=== PATIENT | female | born 1980 | race Caucasian/White ===

== ENCOUNTER → 2016-09-26 | Outpatient (CLI) | payer OTHER | LOC: BMCIMAGING 10:26 | PROVIDERS: ATTEND Family Medicine | DX: D25.0 Submucous leiomyoma of uterus (principal); N83.11 Corpus luteum cyst of right ovary ==

== ENCOUNTER 2017-03-19 17:37 | Observation (INO) | payer OTHER ==
--- NOTE | 2017-03-19 18:14 | OBPROG ---
Labor Progress Note Assessment/Plan: Assessment:fhr: 135 toco: no cramping noted dies leaking, bleeding, and cramping denies feeling regular movement as of yet Plan:consult dr. Stacey LAMA, hydration. Doppler. 03/19/17 18:11 Subjective/Intrapartum Course: 03/19/17 18:09 Feeling irregular cramping that has gone from a pain of 7 at 1600 to a pain of 4 now. i fell to my bottom at 1130. I have been told that I have broken my wrist and my elbow. Denies leaking, bleeding and regular cramping. - Physical Exam General Appearance: WD/WN, alert, no apparent distress Respiratory: chest non-tender, lungs clear, normal breath sounds Cardiac/Chest: regular rate, rhythm Abdomen: normal bowel sounds Extremities: normal range of motion, Veronica's sign (negative bilaterally) DTR- Lower Extremities: Knee (R): 1+, Knee (L): 1+ Skin: normal color, warm/dry Neuro/Psych: no motor/sensory deficits, alert, normal mood/affect, oriented x 3 ICD10 Worksheet Patient Problems: Problems Problem Status Onset fall at 20 weeks Acute
--- NOTE | 2017-03-19 18:33 | GHP ---
[f rep st] HISTORY AND PHYSICAL DATE OF ADMISSION: 03/19/2017 HISTORY OF PRESENT ILLNESS: The patient is a 37-year-old 1, para 0, with an EDC of 08/04/2017, which gives her a gestational age of 20 weeks, who comes into Labor and Delivery on 03/19/2016 with complaints of a fall at 11:30. The patient has been seen for a broken left wrist and left elbow fracture. Arm is in a sling, as well as has been bandaged. The patient states was feeling regular cramping at 04:15 to 5:00 at its worst. At that time, pain was a 7. Pain is better now at a 4. The patient is A negative. Denies bleeding or leaking. States feeling irregular flutters. No movement today. The patient has just [place] [facility] [place] [facility] [place]. PAST MEDICAL HISTORY: Patient has a history of IBS and depression. SOCIAL HISTORY: Has a significant other. Zero alcohol, 0 tobacco, 0 recreational medications. MEDICATIONS: Taking lithium at 150 mg, Latuda for bipolar. PAST SURGICAL HISTORY: Right femur surgeries x4. GYNECOLOGICAL HISTORY: Zero abnormal Paps. Previous OCP and IUD use. HISTORY: Denies. PHYSICAL EXAMINATION: GENERAL: Patient is awake, alert, oriented x3. LUNGS: Clear bilaterally. ABDOMEN: Bowel sounds are positive in all 4 quadrants. NEUROLOGIC: DTRs are 1+ bilaterally. Homans sign is negative bilaterally. MONITORING: heart rate was 135, no irritability or contractions noted on the monitor with toco use. The patient denies leaking and bleeding. The patient's blood type is A negative. PLAN: 1. Will do a Kleihauer Betke. 2. Doppler. 3. Continuous toco until KB results have been received. 4. Pelvic rest until next visit in the office. 5. Followup for broken wrist and broken elbow. 6. Discharge instructions and when to return. Will also give patient medication to assist with pain relief. 7. Consult Dr. Luther Morris on plan of care. No continuous monitoring. Connie Betshahnaz. Discharge to home with instructions. /[id number]/MODL I discussed this patient with Aye over the phone and agree with the plan of care as outlined above. No need for CEFM as previable - just limited tracing to ensure normal FHR. RhoGam if KB positive - can discuss dose based on result if positive. If negative and no s/sx of bleeding/ labor then OK for home w/ precautions. JOVANNI ABRAMSD
== END 2017-03-19 21:15 | disposition home or self-care (01) ==
LOC: FLD 17:37
PROVIDERS: ADMIT Advanced Practice Midwife; ATTEND Advanced Practice Midwife
DX: O9A.212 Injury, poisoning and certain other consequences of external causes complicating pregnancy, second trimester (principal); Z3A.20 20 weeks gestation of pregnancy; S52.102A Unspecified fracture of upper end of left radius, initial encounter for closed fracture; S52.602A Unspecified fracture of lower end of left ulna, initial encounter for closed fracture; W00.0XXA Fall on same level due to ice and snow, initial encounter; Y92.513 Shop (commercial) as the place of occurrence of the external cause
CPT/HCPCS: G0378 ×2

== ENCOUNTER → 2017-03-26 | Outpatient (CLI) | payer OTHER | LOC: FIMAGING 07:49 | PROVIDERS: ATTEND Advanced Practice Midwife | DX: O09.512 Supervision of elderly primigravida, second trimester (principal); F31.9 Bipolar disorder, unspecified; K90.0 Celiac disease; Z3A.21 21 weeks gestation of pregnancy ==

== ENCOUNTER → 2017-06-19 | Outpatient (CLI) | payer OTHER | LOC: FIMAGING 14:49 | PROVIDERS: ATTEND Obstetrics & Gynecology | DX: O09.523 Supervision of elderly multigravida, third trimester (principal); O36.63X0 Maternal care for excessive fetal growth, third trimester, not applicable or unspecified; O99.343 Other mental disorders complicating pregnancy, third trimester; F31.9 Bipolar disorder, unspecified; Z3A.33 33 weeks gestation of pregnancy ==

== ENCOUNTER 2017-07-01 17:57 | Emergency (ER) | payer OTHER ==
--- NOTE | 2017-07-01 17:15 | ASMTCMCOM ---
CM Note CM Note Notes: Requested to see patient by her RN in labor and delivery. Concern over patient having had 2 falls during . 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 The patient is making eye contact and is appropriately concerned for the welfare of her unborn child. Her is supportive at her side. This is their first . They are able to verbalize resources available to them to help when they baby is born. Her right hand is swollen and mildly painful. She reports she tripped over a step in the yard and fell into the raised garden bed. Further evaluation of her hand is pending. No current needs identified at this time. CM available should needs arise. Date Signed: 07/01/2017 05:14 PM Electronically Signed By:aNncy Narayanan RN
--- NOTE | 2017-07-01 17:18 | GHP ---
[f rep st] HISTORY AND PHYSICAL DATE OF ADMISSION: 07/01/2017 ADMITTING DIAGNOSES: 1. Intrauterine at 35 weeks and 1 day. 2. Status post fall with direct abdominal trauma. 3. Leakage of fluid. HISTORY OF PRESENT ILLNESS: The patient is a 37-year-old, 1, para 0, at 35 weeks and 1 day, with an estimated due date 08/04/2017. This is by LMP 10/28/2016 and consistent with a 6-week ultrasound. The patient presents status post fall about 2 hours ago. The patient states she tripped in her driveway on a stone pathway, and did have direct abdominal trauma. She landed on her knees, which are scraped up, as well as her right hand and wrist. She does have a swollen thumb as well as index finger. The patient states she is having some lower abdominal tenderness. Denies any contractions. Denies any spotting or vaginal bleeding. She does note leakage of fluid, but states it is mucus-like. The patient noted decreased movement after the fall, but now since she has been on labor and delivery on the monitor, and movement has picked up. The patient transferred care from [facility] to [facility] late in the first trimester. is complicated by advanced maternal age. All genetic screening is negative. She does have a history of depression and bipolar disorder with a suicide attempt in April 2014, and is currently on [place], Latuda, and Celexa. The patient also has a history of hypothyroidism and stable on meds. Growth ultrasound about 2 weeks ago showed an estimated weight of 96th percentile with no overt abnormalities. The patient is Rh negative, and received RhoGAM at 28 weeks. The patient does have a history of osteopenia and was seen in March of this with a broken left wrist and also has a history of a right femur fracture in 2010. PAST OBSTETRICAL HISTORY: None. GYNECOLOGICAL HISTORY: Age of menarche 11. Cycles are shortened since starting Latuda. She bleeds for 6-7 days. LMP is 10/28/2016. Denies a history of abnormal Pap smears. She has a history of ParaGard use for 3 years that did cause migraines, and then used OCPs for 1 year. Patient denies any exposure to sexually transmitted diseases. PAST MEDICAL HISTORY: Remarkable for bipolar disorder, depression, anxiety, migraine headaches, hypothyroidism, celiac disease, and osteopenia. PAST SURGICAL HISTORY: She had a femur repair x 4 and hardware removal in 2013. CURRENT MEDICATIONS: Include [place], Latuda, Celexa, vitamins, Synthroid 50 mcg, and iron. FAMILY HISTORY: Unremarkable. SOCIAL HISTORY: Patient is . She lives with her . 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 Denies any alcohol, tobacco, or illicit drug use. REVIEW OF SYSTEMS: 10-point review of systems negative. Pertinent positives noted in HPI. LABORATORIES: A-negative, antibody negative. RPR nonreactive. Rubella low immune. Hepatitis B surface antigen negative. HIV negative. Standard panel negative 01/2017. Pap test, gonorrhea, and chlamydia cultures all negative. Innatal screen negative 01/19. H and H 12.3 and 35.5. One-hour Glucola 107. PHYSICAL EXAMINATION: GENERAL: The patient is alert and oriented x3. Well- nourished, well-developed female. She is upset about the fall and any harm to baby. LUNGS: Clear to auscultation bilaterally. ABDOMEN: Gravid, soft. There is some mild tenderness bilaterally, lower abdomen. PELVIC: There is no active bleeding noted. Amnisure was collected. EXTREMITIES: Normal to inspection without calf tenderness or edema. On right hand, the right thumb is swollen, as well as index finger with some bruising. ASSESSMENT AND PLAN: The patient is a 37-year-old, 1, para 0, at 35 weeks and 1 day, who is status post fall with direct abdominal trauma and leakage of fluid. 1. Admit to labor and delivery for observation. 2. heart tones are category 1 tracing, reactive, with baseline in 130's, positive accelerations, no decelerations, moderate variability. On tocometry, there are no contractions noted, and minimal irritability. Will do continuous monitoring. 3. Kleihauer-Betke sent off. If positive, patient will receive RhoGAM. 4. Once we have Kleihauer-Betke results, patient is obstetrically stable and cleared, will discharge and send down to the emergency room for evaluation of right hand and wrist. 5. The patient given instructions to keep routine visit and growth ultrasound at 36 weeks. Instructed to rest, increase fluids, take Tylenol Extra Strength as needed for abdominal cramping, as well as heating pad. labor instructions given. /[id number]/MODL MTDD
--- NOTE | 2017-07-01 18:29 | EDPHY ---
H & P Time Seen by Provider: 07/01/17 18:08 HPI/ROS: CHIEF COMPLAINT: Right hand pain HISTORY OF PRESENT ILLNESS: Patient is a 37-year-old G1 para 0, 35 weeks and 1 day who presents to the emergency department after having a trip and fall. She was walking on her stone pathway when she tripped. She landed forward on her knees and struck her abdomen. She came to the hospital and was initially evaluated in L&D by Dr. Wilkins. In L&D she was evaluated with total lytic monitoring. Per Dr. Wilkins heart tones showed a category 1 tracing, reactive, with positive accelerations, no decelerations, and moderate variability. The patient had a Kleihauer-Betke test. Patient was sent to the emergency department for evaluation of her hand. Patient also has moderate discomfort of her right 4th and 5th metacarpal. This extends up to her 4th and 5th digits. No forearm tenderness. No radial head tenderness. No elbow, humerus or shoulder tenderness. The patient denies any other complaints at this time. REVIEW OF SYSTEMS: My complete review of systems is negative except as mentioned in the HPI. Past Medical/Surgical History: Includes bipolar disorder, depression, anxiety, migraine, hypothyroidism, celiac disease, osteopenia Past surgical history: Femur repair Social history: The patient is . She denies drugs or alcohol. Smoking Status: Never smoked Physical Exam: Vitals noted GENERAL: Well-appearing, in no acute distress, alert. HEENT: [Eyes normal to inspection, no trauma. NECK: Nexus negative. No tenderness palpation RESPIRATORY: Clear to auscultation bilaterally, no rales, rhonchi or wheezing. CVS: Regular rate and rhythm, no rubs, murmurs, or gallops. ABDOMEN: Gravid. Soft, nondistended. BACK: Normal to inspection, no CVA tenderness. SKIN: Normal color, no rash, warm, dry. No pallor. EXTREMITIES: No pedal edema, no calf tenderness, no Homans sign or cords, no joint swelling. The patient has mild swelling over her right 4th and 5th metacarpals. This extends into her right 4th and 5th digits. Neurovascular intact distally NEURO/PSYCH: Alert and oriented, normal mood and affect, normal motor sensory exam. Constitutional: Initial Vital Signs Temperature (C) 37.0 C 07/01/17 18:09 Heart Rate 90 07/01/17 18:09 Respiratory Rate 18 07/01/17 18:09 Blood Pressure 171/101 H 07/01/17 18:09 O2 Sat (%) 95 07/01/17 18:09 O2 Delivery Mode Room Air Allergies/Adverse Reactions: oxybenzone [Oxybenzone] Allergy (Verified 03/14/13 13:34) oxycodone [Oxycodone] Allergy (Verified 03/14/13 13:35) peanut Allergy (Verified 03/14/13 13:35) Home Medications: Medication Instructions Recorded Citalopram Hydrobromide [celeXA 10 07/01/17 MG] Levothyroxine [Synthroid 88 mcg 88 mcg PO DAILY06 07/01/17 (*)] [place] Carbonate 150 mg PO 07/01/17 Lurasidone HCl [Latuda] 20 mg PO DAILY 07/01/17 Vit27&Calcium/Iron/FA 07/01/17 [] Medical Decision Making ED Course/Re-evaluation: In the emergency department I discussed possible etiologies with the patient. I answered all her questions. X-ray of the right hand was ordered. I discussed the risks and benefits of x-ray with her being . The preliminary Kleihauer Betke test was negative. Amnisure test negative. Hand xray: Patient has a fracture of the base of her 5th proximal phalanx. This is minimally displaced. I discussed the results with the patient. Patient was placed in ulnar gutter splint. Patient was neurovascular intact distally. She was given follow-up with Orthopedics. She is given warnings prior to leaving. She will return with worsening symptoms. Differential Diagnosis: My differential includes but is not limited to fracture, dislocation, contusion , sprain, strain, abruption - Data Points Laboratory Results: 07/01/17 07/01/17 17:40 13:35 Smear Review By Pending [employer] Bio[employer]auer Cells Pending Membrane Rupture NEGATIVE (NEGATIVE) Medications Given: Discontinued Medications Acetaminophen (Tylenol) 650 mg PO EDNOW ONE Stop: 07/01/17 19:24 Last Admin: 07/01/17 19:26 Dose: 650 mg Departure - Departure Disposition: Home, Routine, Self-Care Clinical Impression: Proximal phalanx fracture of finger Qualifiers: Encounter type: initial encounter Finger: little finger Fracture type: closed Fracture alignment: displaced Laterality: left Qualified Code(s): S62.617A - Displaced fracture of proximal phalanx of left little finger, initial encounter for closed fracture Condition: Good Instructions: [facility]/L&D Antepartum Care Instructions, Finger Fracture (ED) Additional Instructions: Recommend rest, Tylenol and heat as needed for abdominal/pelvic cramping. labor precautions given. Instructed to call with any spotting, vaginal bleeding or contractions-tightening of abdomen that is painful. Keep scheduled appointment at [facility]. Referrals: Ravinder Mondragon MD [Medical Doctor] - 5-7 days, if not improved
[2017-07-01] MEDS ORDERED: ACETAMINOPHEN 325 MG TAB ONE (19:21)
[2017-07-01] MEDS ORDERED: ACETAMINOPHEN 325 MG TAB PO ONE (19:23)
[2017-07-01 20:41] VITALS: BP 158/99
== END 2017-07-01 20:43 | disposition home or self-care (01) ==
LOC: EDSTATUS 17:57
DX: O9A.213 Injury, poisoning and certain other consequences of external causes complicating pregnancy, third trimester (principal); S62.617A Displaced fracture of proximal phalanx of left little finger, initial encounter for closed fracture; Z3A.35 35 weeks gestation of pregnancy; W01.0XXA Fall on same level from slipping, tripping and stumbling without subsequent striking against object, initial encounter; Y92.69 Other specified industrial and construction area as the place of occurrence of the external cause; Y99.8 Other external cause status; Y93.01 Activity, walking, marching and hiking

== ENCOUNTER 2017-07-10 12:29 | Observation (INO) | payer OTHER ==
[2017-07-10 13:35] LABS: PLATELET COUNT 191 10^3/uL (150-400)
--- NOTE | 2017-07-10 19:36 | PDGENHP ---
History and Physical History and Physical: CARE: [facility] HPI: Patient is a 37 y/o G 1 P 0 at 36.3 weeks ega that presents to L&D from the clinic due to elevated BPs at home - 140s/90s in the office prior to coming to L /D, and visual changes in her left eye. She states her pedal edema has increased over the last few days. She denies headaches or epigastric pain, states baby has been active and denies painful contractions/LOF/VB. EDC: 08/04/17 which is based on LMP: 10/28/16 which is known and consistent with Ultrasound at 6 weeks. This patient transferred care from [facility] to [facility] late in the 1st trimester. is complicated by advanced maternal age-all genetic screening is negative. She does have a history of depression and bipolar disorder with suicide attempt in April of 2014, and is currently on lithium, Latuda and Celexa. The patient also has a history of hypothyroidism and stable on meds. Growth ultrasound about 3 weeks ago showed an estimated weight of 96 percentile with no overt abnormalities. Patient is Rh negative and received RhoGAM at 28 weeks. The patient does have a history of osteopenia and was seen in March of this with a broken left wrist and also had a history of a right femur fracture in 2010. She currently has a broken right wrist that is casted that she injured during a fall a week ago. Review of Systems: Constitutional: Denies any fever, chills, or fatigue HEENT: has had some blurry vision left eye recently, denies difficulty swallowing, hearing loss Cardiovascular: Denies any chest pain, palpitations, increased pedal edema the last several days Respiratory: denies any cough, wheezing, or shortness of breathe GI: Denies any nausea, vomiting, diarrhea, constipation : denies any dysuria, urgency, frequency, vaginal bleeding Musculoskeletal: denies any muscle or bone pain - she has a broken right wrist that is casted Skin: denies any rashes Neuro: denies any headache, seizures, lightheadedness, dizziness, or loss of consciousness - HISTORY: Past obstetrical history: None Gynecological history: Age of menarche 11. Cycles are shortened since starting Latuda. She bleeds for 6-7 days. LMP is 10/28/2016. Denies history of abnormal Pap smears. She has a history of ParaGard use for 3 years-it did cause migraines and then used OCPs for 1 year patient denies any exposure to sexually transmitted diseases. Past medical history: Remarkable for bipolar disorder, depression, anxiety, migraine headaches, hypothyroidism, celiac disease, and osteopenia. Past surgical history: She had a femur repair x4 and hardware removal in 2013 Current medications: Include lithium, Latuda, Celexa, vitamins, Synthroid 50 mcg, and iron. Family history: Unremarkable Social history: Patient is . She lives with her . 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 Denies any alcohol, tobacco, or illicit drug use. LABS: Rh: A neg ABS: Neg Rubella: low Immune HbsAg: NR HIV: NR VDRL: NR 1hr: 107 GC: Neg Chlamydia: Neg Pap: Normal GBS: done today BMI: (prepreg) 24 PHYSICAL EXAM: Constitutional: WN, A&Ox3 HEENT: normocephalic atraumatic, supple Heart: RRR, no murmur Chest: CTA-B Abdomen: Soft, nontender, gravid SVE: th/cl/-3 Reflexes 2+ Extremities: small amt pedal edema, negative remington's sign Neuro: grossly normal Psych: normal affect assessment: Reassuring FHTs, baseline 130s +accels, no decels, moderate variability Contractions: rare Assessment: 37 yo G 1 P 0 with IUP@ 36.3 weeks ega with elevated BPs in clinic - serial BPs here in labor and delivery were initially 140s-150s/90s but after 30 minutes remained in the 120-130s/70s-80s range. PIH labs WNL, p/c ratio elevated: 0.88. Category 1 EFM with occasional mild contraction. Other than complaint of some recent blurry vision left eye, denies h/a, epigastric pain and pedal edema is mild. Reflexes 2+ Plan: Reviewed with Dr Santos. Will discharge home with strict preeclampsia precautions/FKC instructions. Will return for HELEN appt Sunday and add NST - discuss delivery plan at that time. GBS culture obtained today. Patient states her job has been very stressful and would like a work excuse which was provided. all patient questions answered and patient voices understanding/ agreement with POC.
== END 2017-07-10 18:45 | disposition home or self-care (01) ==
LOC: FLD 12:29
PROVIDERS: ADMIT Obstetrics & Gynecology; ATTEND Obstetrics & Gynecology
DX: O09.513 Supervision of elderly primigravida, third trimester (principal); O12.02 Gestational edema, second trimester; O99.283 Endocrine, nutritional and metabolic diseases complicating pregnancy, third trimester; O99.343 Other mental disorders complicating pregnancy, third trimester; F31.9 Bipolar disorder, unspecified; E03.9 Hypothyroidism, unspecified; M85.80 Other specified disorders of bone density and structure, unspecified site; Z3A.36 36 weeks gestation of pregnancy
CPT/HCPCS: 59025; G0378

== ENCOUNTER 2017-07-14 11:42 | Observation (INO) | payer OTHER ==
--- NOTE | 2017-07-14 12:54 | PDGENHP ---
History & Physical Chief Complaint: Headache in and elevated blood pressure History of Present Illness: Pt is 37 y/o @ 37 weeks with MELODY 08/04/17 by LMP 10/28/16 and c/w first trimester u/s at 6 weeks. She called with c/o headache this morning, and elevated BP 158/95. She denies any visual changes at this time or any RUQ or epigastric pain. Good FM noted. No LOF, VB or ctx's. She was seen on L&D 07/10 with similar complaints and PIH labs wnl except elevated P:C at 0.88. Pertinent Past, Social, Family History: First . Cycles are less than 28 days x 6-7 days; no h/o abn paps or exposure to any STDs. Bipolar d/o, depression, anxiety, hypothyroid, migraine HAs and Celiac. R femur repair and then removal of hardware; endoscopy; wisdom teeth extraction Relevant Physical Exam: WN, WD female in NAD. Alert and oriented x 3. Abdomen is soft, gravid and nontender. Pelvic exam deferred. Lower extremities without swelling andf reflexes 2+. Pt states here on L&D her headache is improved, less stressed now. BPs are stable, on admission it was 124/74, 131/76 , 123/74. No PIH labs done since BPs below 140/90's and normal on 07/10. NST reactive, Cat I tracing with FHR 130's, +accels, no decels and mod variability. On toco, there are no contractions. Patient is stable for discharge home with PIH and labor precautions. She is to try to reduce stress, limit sodium intake. Continue to monitor BPs at home. Keep scheduled appointment next week.
== END 2017-07-14 13:24 | disposition home or self-care (01) ==
LOC: FLD 11:42
PROVIDERS: ADMIT Obstetrics & Gynecology; ATTEND Obstetrics & Gynecology
DX: O99.89 Other specified diseases and conditions complicating pregnancy, childbirth and the puerperium (principal); R51 Headache; E03.9 Hypothyroidism, unspecified; F31.9 Bipolar disorder, unspecified; K90.0 Celiac disease; Z3A.37 37 weeks gestation of pregnancy
CPT/HCPCS: G0378

== ENCOUNTER 2017-07-26 21:21 | Inpatient (IN) | payer OTHER ==
[2017-07-26] MEDS ORDERED: OLIVE OIL 118 ML BTL MISC PRN (22:05)
[2017-07-26] MEDS ORDERED: OXYTOCIN/RINGERS LACTATE 1,000 ML IV PRN (22:05)
[2017-07-26] MEDS ORDERED: MISOPROSTOL 200 MCG TAB PR PRN (22:05)
[2017-07-26] MEDS ORDERED: TERBUTALINE SULFATE 1 MG/ML VIAL IV PRN (22:05)
[2017-07-26] MEDS ORDERED: IBUPROFEN 600 MG TAB PO PRN (22:05)
[2017-07-26] MEDS ORDERED: LR 1,000 ML IV PRN (22:05)
[2017-07-26] MEDS ORDERED: EPSOM SALT 454 GM TP PRN (22:05)
[2017-07-26] MEDS ORDERED: LIDOCAINE 1% 300 MG/30 ML SDV SC PRN (22:05)
[2017-07-26 22:46] LABS: PLATELET COUNT 206 10^3/uL (150-400)
[2017-07-26] MEDS ORDERED: OLIVE OIL 118 ML BTL ONE (23:55)
[2017-07-26] MEDS ORDERED: LIDOCAINE 1% 300 MG/30 ML SDV ONE (23:55)
[2017-07-26] MEDS ORDERED: AMMONIA AROMATIC 1 EACH AMP IH ONE (23:55)
[2017-07-26] MEDS ORDERED: MISOPROSTOL 200 MCG TAB ONE (23:56)
[2017-07-26] MEDS ORDERED: TERBUTALINE SULFATE 1 MG/ML VIAL ONE (23:56)
[2017-07-26] MEDS ORDERED: OXYTOCIN 10 UNIT/ML VIAL ONE (23:56)
--- NOTE | 2017-07-27 00:33 | PDGENHP ---
History and Physical History and Physical: CARE: [facility] HPI: Patient is a 37yo with IUP@38-6wks that presents to L&D with complaints of SROM @ 2004. She denies any regular contractions or pain. She denies any bleeding. She states fluid is yellow. She reports decrease in FM. She denies any headaches, visual changes, epigastric pain. EDC: 08/04/17 which is based on LMP: 10/28/16 which is known and consistent with Ultrasound at 6 weeks. Her is complicated by: AMA, Rh negative, "extensive psych history", bipolar DO, depression/anxiety, hypothyroid, celiac disease HISTORY: Previous OB history: G1 Past medical history: hypothyroid, Rh Negative, bipolar DO, depression/anxiety , celiac disease, "extensive psych hx" Past surgical history: Right femur, oral surgery Medications: PNV, levothyroxine, vitamin B6, B complex, zinc, lithium, celexa, omeprazole, iron, vitamin D3, Tums Allergies (list reaction): oxybenzone, peanuts, oxycodone, fentanyl LABS: Rh: A neg ABS: Neg Rubella: Immune HbsAg: NR HIV: NR VDRL: NR 1hr: 107 GC: Neg Chlamydia: Neg Pap: Normal GBS: negative BMI: (prepreg) 24 PHYSICAL EXAM: Constitutional: WN, A&Ox3 HEENT: normocephalic atraumatic, supple Heart: RRR, no murmur Chest: CTA-B Abdomen: Soft, nontender, gravid SVE: unable to reach cervix (per RN) Extremities: trace edema, negative homans sign Neuro: grossly normal Psych: normal affect assessment: Reassuring FHTs, baseline 125 +accels, no decels, moderate variability Contractions: toco q q2-5 Assessment: 1) [id number] with IUP@38-6 (L/6) 2) PROM 3) GBS negative 4) Cat 1 FHR tracing 5) MSF Plan: 1) Admit to L&D 2) expectant management per pt request 3) offered cytotec.pitocin, pt declines at this time. 4) PR[employer]ECTIVE SERVICES SOCIAL WORKER will be notified for delivery 2/ MSF
[2017-07-27] MEDS: PYRIDOXINE HCL 25 MG TAB PO SCH ×3 (00:58→20:31)
[2017-07-27] MEDS: LITHIUM CARBONATE 300 MG TAB PO SCH ×2 (00:58→20:35)
[2017-07-27] MEDS: PRENATAL VIT 1 EACH TAB PO SCH ×2 (00:58→19:05)
[2017-07-27] MEDS: MISOPROSTOL 50 MCG CAP PO SCH ×4 (05:32→15:13)
[2017-07-27] MEDS ORDERED: PROMETHAZINE HCL 25 MG/ML INJ IVP PRN (06:39)
[2017-07-27] MEDS: LEVOTHYROXINE 88 MCG TAB PO SCH (08:36)
[2017-07-27] MEDS: CITALOPRAM 20 MG TAB PO SCH (08:38)
[2017-07-27] MEDS ORDERED: BUPIVACAINE 0.25% 30 ML SDV ONE (14:33)
[2017-07-27] MEDS ORDERED: PHENYLEPHRINE HCL 100 MCG/ML SYR ONE (14:34)
[2017-07-27] MEDS ORDERED: fentaNYL 100 MCG/2 ML INJ ONE (14:36)
[2017-07-27] MEDS ORDERED: ONDANSETRON 4 MG/2 ML VIAL IVP PRN (15:55)
[2017-07-27] MEDS ORDERED: PHENYLEPHRINE HCL 100 MCG/ML SYR IVP PRN (15:55)
[2017-07-27] MEDS ORDERED: LR 500 ML IV SCH (16:00)
[2017-07-27] MEDS ORDERED: fentaNYL 2MCG/ML/BUP 0.1% RTU 100 ML EP SCH (16:00)
--- NOTE | 2017-07-27 16:05 | PREANESOB ---
Obstetric Pre-Anesthesia Info - General Info Proposed Procedure: Labor and delivery : 1 Para: 0 MELODY: 08/04/17 Gestational Age: 38 week(s) and 5 day(s) - Info Status: Full Term Monitors: External FHR Baseline (bpm): 150 FHR Pattern: Reassuring - Labor Status Cervical Dilation per last OB SVE: 1 Indications for Labor Analgesia: Induction of Labor, Other (Specify) (SROM) Labor Epidural: Proposed Anesthesia Allergies/Adverse Reactions: Allergy/AdvReac Type Severity Reaction Status Date / Time fentanyl Allergy Verified 07/26/17 22:01 oxybenzone [Oxybenzone] Allergy Verified 07/26/17 22:01 oxycodone [Oxycodone] Allergy Verified 07/26/17 22:01 peanut Allergy Verified 07/26/17 22:01 Home Medications: Medication Instructions Recorded Citalopram Hydrobromide [celeXA 10 07/01/17 MG] Levothyroxine [Synthroid 88 mcg 88 mcg PO DAILY06 07/01/17 (*)] [place] Carbonate 150 mg PO 07/01/17 Lurasidone HCl [Latuda] 20 mg PO DAILY 07/01/17 Vit27&Calcium/Iron/FA 07/01/17 [] B-6 07/26/17 B-Complex Tablet 07/26/17 Calcium 07/26/17 Fish Oil 1,360 mg Softgel 07/26/17 Iron 07/26/17 Omeprazole 07/26/17 Tums 500MG (*) 07/26/17 Vitamin C 07/26/17 Vitamin D3 07/26/17 Zinc 07/26/17 Visit Medications: Generic Name Dose Route Start Last Admin Trade Name Freq PRN Reason Stop Dose Admin Citalopram Hydrobromide 10 mg 07/27/17 08:00 07/27/17 08:38 Celexa PO 01/23/18 07:59 10 mg DAILY BASHIR Administration Lactated Ringer's 1,000 mls @ 0 mls/hr 07/26/17 22:05 07/27/17 14:52 Lr IV 07/27/17 22:04 1,000 mls PRN PRN Administration SEE PROTOCOL CONDITIONS Protocol Per Protocol Oxytocin/Lactated Ringer's 1,000 mls @ 125 mls/hr 07/26/17 22:05 Pitocin 20 Units/Lr (Premix) IV PRN PRN Post bleeding Fentanyl/Bupivacaine HCl 100 mls @ 0 mls/hr 07/27/17 16:00 Fentanyl/Bupivacaine/Ns 2 Mcg/Ml 0.1% (Premix EP 08/06/17 15:59 CONT BASHIR Protocol As Directed Lactated Ringer's 500 mls @ 0 mls/hr 07/27/17 16:00 Lr IV 01/23/18 15:59 CONT BASHIR As Directed Ibuprofen 600 mg 07/26/17 22:05 Motrin PO ONCE PRN post , pain Levothyroxine Sodium 88 mcg 07/27/17 06:00 07/27/17 08:36 Synthroid PO 01/23/18 05:59 88 mcg DAILY@0600 BASHIR Administration Lidocaine HCl 300 mg 07/26/17 22:05 Lidocaine Hcl 1% SC 01/22/18 22:04 ONCE PRN episiotomy [place] Carbonate 150 mg 07/27/17 01:00 07/27/17 00:58 [place] Carbonate PO 01/23/18 00:59 150 mg DAILY BASHIR Administration Magnesium Sulfate 454 gm 07/26/17 22:05 Eps[place] Salt TP 01/22/18 22:04 Q1H PRN perineal discomfort Misoprostol 800 - 1,000 mcg 07/26/17 22:05 Cytotec FL ONCE PRN Vaginal Atony/Bleeding Misoprostol 50 mcg 07/27/17 01:00 07/27/17 15:13 Cytotec PO 01/23/18 00:59 50 mcg Q4H BASHIR Administration [place] Oil 118 ml 07/26/17 22:05 Sweet Oil MISC 01/22/18 22:04 ONCE PRN perineal massage Ondansetron HCl 4 mg 07/27/17 15:55 Zofran IVP 07/28/17 15:54 Q4HRS PRN Nausea/Vomiting, Can't Take PO Phenylephrine HCl 100 mcg 07/27/17 15:55 Neosynephrine IVP 01/23/18 15:54 .Q2M PRN Hypotension Prenat Multivit/[place]/Iron/Folic Ac 1 each 07/27/17 00:45 07/27/17 00:58 PO 01/23/18 00:44 1 each DAILY BASHIR Administration Promethazine HCl 12.5 mg 07/27/17 06:39 07/27/17 06:48 Phenergan IVP 01/23/18 06:38 12.5 mg Q6HRS PRN Administration Nausea/Vomiting, Can't Take PO Pyridoxine HCl 50 mg 07/27/17 00:45 07/27/17 00:58 Vitamin B-6 PO 01/23/18 00:44 50 mg BID BASHIR Administration Terbutaline Sulfate 0.25 mg 07/26/17 22:05 [place]th[place] IV 01/22/18 22:04 ONCE PRN Tachysystole Discontinued Medications Generic Name Dose Route Start Last Admin Trade Name Freq PRN Reason Stop Dose Admin Ammonia (Aromatic Spirit) Confirm 07/26/17 23:55 Ammonia Aromatic Administered 07/26/17 23:56 Dose 1 each IH .STK-MED ONE Bupivacaine HCl Confirm 07/27/17 14:33 Sensorcaine 0.25% Sdv Administered 07/27/17 14:34 Dose 30 ml .ROUTE .STK-MED ONE Fentanyl Confirm 07/27/17 14:36 Sublimaze Administered 07/27/17 14:37 Dose 100 mcg .ROUTE .STK-MED ONE Lidocaine HCl Confirm 07/26/17 23:55 Lidocaine Hcl 1% Administered 07/26/17 23:56 Dose 300 mg .ROUTE .STK-MED ONE Misoprostol Confirm 07/26/17 23:56 Cytotec Administered 07/26/17 23:57 Dose 1,000 mcg .ROUTE .STK-MED ONE [place] Oil Confirm 07/26/17 23:55 Sweet Oil Administered 07/26/17 23:56 Dose 118 ml .ROUTE .STK-MED ONE Oxytocin Confirm 07/26/17 23:56 Pitocin Administered 07/26/17 23:57 Dose 40 unit .ROUTE .STK-MED ONE Phenylephrine HCl Confirm 07/27/17 14:34 Neosynephrine Administered 07/27/17 14:35 Dose 1,000 mcg .ROUTE .STK-MED ONE Terbutaline Sulfate Confirm 07/26/17 23:56 Brethine Administered 07/26/17 23:57 Dose 1 mg .ROUTE .STK-MED ONE - Anesthesia History Response to Local Anesthetics: Normal Anesthesia & Operative History: Prob w/Prior Anesthesia, Other (Specify) ( Patient had dysphoria/depression after fentanyl and versed for upper GI endoscopy.) Family Anesthesia History: Negative - Social History Substance Use/Abuse: Denies - Vital Signs Blood Pressure: 150/87 Heart Rate: 85 Height/Weight (Nursing): Height 173.99 cm Weight 87.09 kg - Focused Exam Neck exam: FROM Mallampati Score: Class 2 Mouth exam: normal dental/mouth exam Pulmonary: no respiratory distress Cardiovascular: regular rate and rhythym Labs: 07/26/17 22:24 07/26/17 22:24 Patient ABO/Rh A NEGATIVE 07/26/17 22:24 Uric Acid 4.3 mg/dL (2.5-6.8) 07/26/17 22:24 Total Bilirubin 0.2 mg/dL (0.1-1.4) 07/26/17 22:24 Conjugated Bilirubin 0.1 mg/dL (0.0-0.5) 07/26/17 22:24 Unconjugated Bilirubin 0.1 mg/dL (0.0-1.1) 07/26/17 22:24 AST 21 IU/L (14-46) 07/26/17 22:24 ALT 33 IU/L (9-52) 07/26/17 22:24 Lactate Dehydrogenase 324 IU/L (313-618) 07/26/17 22:24 - Plan Anesthetic Plan: ROME Consent Signed and on Chart: Yes Patient/Guardian Understands and Agrees to Plan: Yes Urgent/Emergent Case: Gris rowe completed preop but documented later for safe timely pt care
--- NOTE | 2017-07-27 16:10 | POSTANESTH ---
Post Anesthetic Evaluation Cardiovascular Status: Normal, Stable, Similar to Pre-Op Cond Respiratory Status: Normal, Stable, Similar to Pre-op Cond. Level of Consciousness/Mental Status: Can Participate in Eval Pain Control: Adequate, Prn Tx Ordered Nausea/Vomiting Control: Adequate, Prn Tx Ordered Complications Possibly Related to Anesthesia: None Noted
[2017-07-27] MEDS ORDERED: fentaNYL 200 MCG, BUPIVACAINE 0.5% 20 ML in NS 100 ML EP SCH (16:30)
--- NOTE | 2017-07-27 20:30 | OBPROG ---
Labor Progress Note Assessment/Plan: Assessment: IUP at 38w6d SROM with mec x 24 hrs significant anxiety disorder/bipolar on lithium comf with ROME - but asking for dose adjustment Plan: start pitocin 07/27/17 20:27 Subjective/Intrapartum Course: 07/27/17 20:29 pt very comf with ROME and armando exam very well. great progress to 5/100/0. u/s done and baby in OP position. after exam, pt desires dose adjusted of ROME and anesth called. Objective: 07/26/17 22:24 07/26/17 22:24 Patient ABO/Rh A NEGATIVE 07/26/17 22:24 Uric Acid 4.3 mg/dL (2.5-6.8) 07/26/17 22:24 Total Bilirubin 0.2 mg/dL (0.1-1.4) 07/26/17 22:24 Conjugated Bilirubin 0.1 mg/dL (0.0-0.5) 07/26/17 22:24 Unconjugated Bilirubin 0.1 mg/dL (0.0-1.1) 07/26/17 22:24 AST 21 IU/L (14-46) 07/26/17 22:24 ALT 33 IU/L (9-52) 07/26/17 22:24 Lactate Dehydrogenase 324 IU/L (313-618) 07/26/17 22:24 Temp Pulse Resp BP Pulse Ox 85 150/87 H 07/27/17 16:09 07/27/17 16:09 - SVE Dilation (cm): 5 Effacement (%): 100 Station: 0 Membranes: SROM Amniotic Fluid Color: Meconium Stained - Contraction Pattern Assessment Current Contraction Pattern: Regular (q 4 min) - FHR Assessment [place] FHR (bpm): 140 FHR Pattern Variability: Moderate FHR Category: 1 Oxytocin Orders Assessment - Pre-Induction/Augmentation Assessment Indication: augmentation due to prolonged ROM Presentation: Vertex Gestational Age: 38 week(s) and 5 day(s) Gestational Age Determined By: Last Menstral Period Estimated Weight: 2501-3400g Membrane Status: Ruptured Current Sterile Vaginal Exam (SVE): 5/100/0 Current Contraction Pattern: Regular - Heart Rate Pattern [place] FHR Baseline (bpm): 140 FHR Category: 1 FHR Pattern Variability: Moderate FHR Accelerations: Present - Mcneill's Score Dilation: 5-6cm Effacement: 80+ Station: -1,0 Cervix: Soft Cervix Position: Mid Mcneill Score Total: 11 - Induction/Augmentation Consent Risks/Benefits of Procedure Reviewed/Pt Agrees to Proceed: Yes ICD10 Worksheet Patient Problems: Problems Problem Status Onset headache in third trimester Acute
[2017-07-27] MEDS ORDERED: LR 500 ML IV PRN (20:33)
[2017-07-27] MEDS ORDERED: CALCIUM CARBONATE 500 MG CHEWABLE TAB PO PRN (20:45)
[2017-07-27] MEDS ORDERED: PANTOPRAZOLE SODIUM 40 MG TAB PO PRN (20:45)
[2017-07-27] MEDS ORDERED: OXYTOCIN/RINGERS LACTATE 500 ML IV SCH (21:00)
--- NOTE | 2017-07-28 01:21 | OBDEL ---
Info Type: Vaginal Presentation at Delivery: Vertex L&D Analgesia/Anesthesia Type: Epidural GBS+: No Intrapartum Medications: Generic Name Dose Route Start Last Admin Trade Name Swapna PRN Reason Stop Dose Admin Calcium Carbonate 500 mg 07/27/17 20:45 07/27/17 21:03 Tums PO 01/23/18 20:44 500 mg TID PRN Administration HEARTBURN, SHORTACTING Citalopram Hydrobromide 10 mg 07/27/17 08:00 07/27/17 08:38 Celexa PO 01/23/18 07:59 10 mg DAILY BASHIR Administration Oxytocin/Lactated Ringer's 500 mls @ 0 mls/hr 07/27/17 21:00 07/27/17 21:16 Pitocin 30 Units/Lr (Premix) IV 01/23/18 20:59 500 mls CONT BASHIR Administration Protocol Per Protocol Levothyroxine Sodium 88 mcg 07/27/17 06:00 07/27/17 08:36 Synthroid PO 01/23/18 05:59 88 mcg DAILY@0600 BASHIR Administration Lidocaine HCl 300 mg 07/26/17 22:05 07/28/17 01:12 Lidocaine Hcl 1% SC 01/22/18 22:04 300 mg ONCE PRN Administration episiotomy [place] Carbonate 150 mg 07/27/17 21:00 07/27/17 20:35 [place] Carbonate PO 01/23/18 20:59 150 mg HS BASHIR Administration Misoprostol 50 mcg 07/27/17 01:00 07/27/17 15:13 Cytotec PO 01/23/18 00:59 50 mcg Q4H BASHIR Administration Pantoprazole Sodium 40 mg 07/27/17 20:45 07/27/17 21:04 Protonix PO 01/23/18 20:44 40 mg DAILY PRN Administration HEARTBURN Prenat Multivit/[place]/Iron/Folic Ac 1 each 07/27/17 00:45 07/27/17 19:05 PO 01/23/18 00:44 Not Given DAILY BASHIR Promethazine HCl 12.5 mg 07/27/17 06:39 07/27/17 06:48 Phenergan IVP 01/23/18 06:38 12.5 mg Q6HRS PRN Administration Nausea/Vomiting, Can't Take PO Pyridoxine HCl 50 mg 07/27/17 00:45 07/27/17 20:31 Vitamin B-6 PO 01/23/18 00:44 50 mg BID BASHIR Administration Discontinued Medications Generic Name Dose Route Start Last Admin Trade Name Swapna PRN Reason Stop Dose Admin Lactated Ringer's 1,000 mls @ 0 mls/hr 07/26/17 22:05 07/27/17 14:52 Lr IV 07/27/17 22:04 1,000 mls PRN PRN Administration SEE PROTOCOL CONDITIONS Protocol Per Protocol Oxytocin/Lactated Ringer's 1,000 mls @ 125 mls/hr 07/26/17 22:05 07/28/17 01: 00 Pitocin 20 Units/Lr (Premix) IV 1,000 mls PRN PRN Administration Post bleeding [place] Carbonate 150 mg 07/27/17 01:00 07/27/17 00:58 [place] Carbonate PO 01/23/18 00:59 150 mg DAILY BASHIR Administration - Care Provider Digital Marketing Intern/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 great progress to 5/100/0. u/s done and baby in OP position. after exam, pt desires dose adjusted of ROME and anesth called. Indications for Delivery: SROM, Gestational Hypertension Vaginal Delivery - Delivery Provider Delivery Physician/CNM: Dolly Cheney - Labor and Delivery Onset of Contractions Date: 07/27/17 Onset of Contractions Time: 12:00 Onset of Contractions Type: Induced (with cytotec x 3 doses, then pitocin) Rupture of Membranes Date: 07/26/17 Rupture of Membranes Time: 20:05 Rupture of Membranes Type: Spontaneous Amniotic Fluid Color: Meconium Stained Dilation Complete Date: 07/27/17 Dilation Complete Time: 23:19 Placenta Delivery Date: 07/28/17 Placenta Delivery Time: 00:39 Total Hours of Labor: 12 Laceration: 2nd Degree (small - more to left vaginal wall) Repair: 3-0, Vicryl Vaginal Sponge Count Correct: Yes Vaginal Needle Count Correct: Yes Vaginal Sweep Performed: Yes EBL: 350 Delivery Events: Nuchal Cord (x1 loose and reduced) Cord Gases: Cord Gases Cord Blood PCO2 TNP 07/28/17 00:31 Cord Base Excess TNP 07/28/17 00:31 Cord ABG pH TNP 07/28/17 00:31 Cord VBG pH 7.30 (7.20-7.42) 07/28/17 00:31 - Medications Labor Augmentation/Induction Methods Used: Pitocin (up to 6 mu/min), Misoprostol (x3 doses) Labor Augmentation/Induction Indication: Other (Specify) (prolonged ROM/meconium ) Operative Report - Delivery Cord Gases: Cord Gases Cord Blood PCO2 TNP 07/28/17 00:31 Cord Base Excess TNP 07/28/17 00:31 Cord ABG pH TNP 07/28/17 00:31 Cord VBG pH 7.30 (7.20-7.42) 07/28/17 00:31 [place] Data MELODY: 08/04/17 Gestational Age: 39 week(s) and 0 day(s) Fernandez Delivery Date: 07/28/17 Delivery Time: 00:31 Sex of : Female Score (1 Min): 7 Score (5 Min): 8 ICD10 Worksheet Patient Problems: Problems Problem Status Onset (spontaneous vaginal delivery) Acute
[2017-07-28] MEDS ORDERED: MEASLES,MUMPS&RUBELLA VACC/PF 0.5 ML VIAL SC ONE (01:25)
[2017-07-28] MEDS: IBUPROFEN 600 MG TAB PO PRN ×4 (01:54→22:44)
--- NOTE | 2017-07-28 02:32 | PDMN ---
Medical Necessity Medical necessity: C/M review: Patient meets INPT criteria under [facility] [id number] Vaginal delivery: viable female . MD anticipates > 2 MN LOS for ongoing eval and TX of above.
[2017-07-28] MEDS: LEVOTHYROXINE 88 MCG TAB PO SCH (06:00)
[2017-07-28] MEDS: PRENATAL VIT 1 EACH TAB PO SCH (11:13)
[2017-07-28] MEDS: LITHIUM CARBONATE 300 MG TAB PO SCH ×2 (11:13→20:25)
[2017-07-28] MEDS: CITALOPRAM 20 MG TAB PO SCH ×2 (11:14→19:43)
--- NOTE | 2017-07-28 13:02 | OBPP ---
Progress Note Assessment/Plan: Assessment: PPD0 (delivered early this AM) s/p - now . Routine cares, cont work w . Pain controlled. Has Hct tomorrow AM reflex PPD1. Discussed possible home tomorrow vs Sunday. Bipolar - Continuing Celexa daily and qHS [place] 150mg. She had been on Letuda but discontinued that in the 3rd trimester of and is not planning on restarting at this time. JOVANNI Subjective/ Course: Saw Shelly this AM with her partner present. She's generally doing alright - BF has been frustrating so far bc she has flat and cracked nipples and lactations tips for helping w latch involve two hands - and she has one still in her cast for 5 wks. Otherwise pain OK, minimal lochia. Mood seems status quo - anxious, scattered. Objective: 07/26/17 22:24 07/26/17 22:24 Patient ABO/Rh A NEGATIVE 07/26/17 22:24 Uric Acid 4.3 mg/dL (2.5-6.8) 07/26/17 22:24 Total Bilirubin 0.2 mg/dL (0.1-1.4) 07/26/17 22:24 Conjugated Bilirubin 0.1 mg/dL (0.0-0.5) 07/26/17 22:24 Unconjugated Bilirubin 0.1 mg/dL (0.0-1.1) 07/26/17 22:24 AST 21 IU/L (14-46) 07/26/17 22:24 ALT 33 IU/L (9-52) 07/26/17 22:24 Lactate Dehydrogenase 324 IU/L (313-618) 07/26/17 22:24 Temp Pulse Resp BP Pulse Ox 36.3 C 89 16 127/77 H 95 07/28/17 07:59 07/28/17 07:59 07/28/17 07:59 07/28/17 07:59 07/28/17 07:59 Uterine Position/Fundal Height: At Umbilicus Uterine Tone: Firm
[2017-07-28] MEDS ORDERED: PSYLLIUM METAMUCIL 1 PKT PO PRN (18:03)
[2017-07-28] MEDS: PYRIDOXINE HCL 25 MG TAB PO SCH ×2 (19:44→23:30)
[2017-07-28] MEDS: ACETAMINOPHEN 325 MG TAB PO PRN (20:24)
[2017-07-29] MEDS: ACETAMINOPHEN 325 MG TAB PO PRN ×5 (00:57→20:28)
[2017-07-29] MEDS: MISOPROSTOL 50 MCG CAP PO SCH ×2 (03:24→03:25)
[2017-07-29] MEDS: IBUPROFEN 600 MG TAB PO PRN ×3 (07:21→20:28)
[2017-07-29] MEDS: CITALOPRAM 20 MG TAB PO SCH (08:35)
[2017-07-29] MEDS: LEVOTHYROXINE 88 MCG TAB PO SCH (08:35)
[2017-07-29] MEDS: PRENATAL VIT 1 EACH TAB PO SCH (11:08)
[2017-07-29] MEDS: PYRIDOXINE HCL 25 MG TAB PO SCH ×2 (11:30→20:29)
--- NOTE | 2017-07-29 13:15 | OBPP ---
Progress Note Assessment/Plan: Assessment: PPD 1 1/2 s/p significant anxiety disorder/bipolar on lithium mom and baby Rh - needs MMR booster Plan: doing fine but fragile, nipple pain and trouble with BF due to flat nipples 07/27/17 20:27 07/29/17 13:12 Subjective/ Course: Saw Shelly this AM with her partner present. She's generally doing alright - BF has been frustrating so far bc she has flat and cracked nipples and lactations tips for helping w latch involve two hands - and she has one still in her cast for 5 wks. Otherwise pain OK, minimal lochia. Mood seems status quo - anxious, scattered. 07/29/17 13:15 pt doing well physically from delivery. bld is lessened and mild cramps. urinating fine. reports perineum is managed with ibu and tolerable discomfort with ice packs. nipples are sore and now pumping to stim milk - hasn't slept much at all. is scattered with conversation and hard to focus - not unlike her usual state but worsened by sleep deprivation. Objective: 07/26/17 22:24 07/26/17 22:24 Patient ABO/Rh A NEGATIVE 07/26/17 22:24 Uric Acid 4.3 mg/dL (2.5-6.8) 07/26/17 22:24 Total Bilirubin 0.2 mg/dL (0.1-1.4) 07/26/17 22:24 Conjugated Bilirubin 0.1 mg/dL (0.0-0.5) 07/26/17 22:24 Unconjugated Bilirubin 0.1 mg/dL (0.0-1.1) 07/26/17 22:24 AST 21 IU/L (14-46) 07/26/17 22:24 ALT 33 IU/L (9-52) 07/26/17 22:24 Lactate Dehydrogenase 324 IU/L (313-618) 07/26/17 22:24 Temp Pulse Resp BP Pulse Ox 36.2 C 85 16 133/77 H 97 07/29/17 07:14 07/29/17 07:14 07/29/17 07:14 07/29/17 07:14 07/29/17 07:14 Uterine Position/Fundal Height: Umbilicus -1 Uterine Tone: Firm Physical Exam - Physical Exam Abdomen: non-tender, soft, other (FF at umb -2, lochia small) Extremities: non-tender, pedal edema (minimal) Skin: normal color, warm/dry Neuro/Psych: alert, normal mood/affect
[2017-07-29] MEDS ORDERED: MEASLES,MUMPS&RUBELLA VACC/PF 0.5 ML VIAL SC ONE (14:30)
--- NOTE | 2017-07-29 17:15 | ASMTCASEMG ---
Living Arrangements What is your living Answers: With Spouse arrangement? Who do you live with? Type Of Residence What kind of residence do Answers: House you live in? Discharge Plan Comments Coordination Status Comments Notes: CM spoke w/ RACHAEL Angeles regarding pt. CM met w/ pt and for a short therapy session. CM provided pt w/ resources to get a therapist. CM, pt and spent 50 minutes talking about expectations and communication styles. CM provided pt handouts on mindfulness techniques. Pt reports that she currently doesn't have a therapist but finds [facility] work the best for her. RACHAEL Angeles will make a referral to [facility] for an RN to come out a couple times a month for support. No other identifiable needs at this time. CM available for changes. Plan: Independent Date Signed: 07/29/2017 05:15 PM Electronically Signed By:CONNER Perez
[2017-07-29] MEDS: LITHIUM CARBONATE 300 MG TAB PO SCH (20:25)
[2017-07-30] MEDS: ACETAMINOPHEN 325 MG TAB PO PRN ×2 (02:50→10:05)
[2017-07-30] MEDS: IBUPROFEN 600 MG TAB PO PRN ×2 (02:50→10:06)
[2017-07-30] MEDS: LEVOTHYROXINE 88 MCG TAB PO SCH (06:01)
[2017-07-30] MEDS: CITALOPRAM 20 MG TAB PO SCH (08:18)
[2017-07-30 08:31] VITALS: BP 114/71
[2017-07-30] MEDS: PRENATAL VIT 1 EACH TAB PO SCH (10:06)
[2017-07-30] MEDS: PYRIDOXINE HCL 25 MG TAB PO SCH (10:06)
--- NOTE | 2017-07-30 10:26 | OBPP ---
Progress Note Assessment/Plan: Assessment: PPD2 (delivered early Sat AM) s/p - now . Routine cares, cont work w . Pain controlled. PPD1 labs WNL and VS normal/stable. Fe supps for anemia. Discussed home today - Mood check in 1 wk, will try to check in by phone in a few days. Bipolar - Continuing Celexa daily and qHS [place] 150mg. She had been on Letuda but discontinued that in the 3rd trimester of and is not planning on restarting at this time. JOVANNI 07/30/17 12:06 Subjective/ Course: Saw Shelly this AM with her partner present. She's generally doing alright - BF has been frustrating so far bc she has flat and cracked nipples and lactations tips for helping w latch involve two hands - and she has one still in her cast for 5 wks. Otherwise pain OK, minimal lochia. Mood seems status quo - anxious, scattered. 07/29/17 13:15 pt doing well physically from delivery. bld is lessened and mild cramps. urinating fine. reports perineum is managed with ibu and tolerable discomfort with ice packs. nipples are sore and now pumping to stim milk - hasn't slept much at all. is scattered with conversation and hard to focus - not unlike her usual state but worsened by sleep deprivation. 07/30/17 12:05 Shelly seems to be good this morning. Does feel ready for home, happy they stayed for the help with BF. Pain controlled, bowels moving, up and around. Long discussion re plan for home, mood check ins, precautions. Objective: 07/26/17 22:24 07/26/17 22:24 Patient ABO/Rh A NEGATIVE 07/26/17 22:24 Uric Acid 4.3 mg/dL (2.5-6.8) 07/26/17 22:24 Total Bilirubin 0.2 mg/dL (0.1-1.4) 07/26/17 22:24 Conjugated Bilirubin 0.1 mg/dL (0.0-0.5) 07/26/17 22:24 Unconjugated Bilirubin 0.1 mg/dL (0.0-1.1) 07/26/17 22:24 AST 21 IU/L (14-46) 07/26/17 22:24 ALT 33 IU/L (9-52) 07/26/17 22:24 Lactate Dehydrogenase 324 IU/L (313-618) 07/26/17 22:24 Temp Pulse Resp BP Pulse Ox 36.4 C 78 16 114/71 96 07/30/17 08:25 07/30/17 08:25 07/30/17 08:25 07/30/17 08:25 07/29/17 20:00 Uterine Position/Fundal Height: At Umbilicus Uterine Tone: Firm
--- NOTE | 2017-07-30 11:34 | OBGCSDC ---
General Delivery Information - General Info : 1 Para: 1 Abortions: 0 Type: Vaginal L&D Analgesia/Anesthesia Type: Epidural Admission Date: 07/26/17 Labs: Patient ABO/Rh A NEGATIVE 07/26/17 22:24 Hct 37.2 % (38.0-47.0) L 07/26/17 22:24 - Hospital Course Intrapartum: 07/27/17 20:29 pt very comf with ROME and armando exam very well. great progress to 5/100/0. u/s done and baby in OP position. after exam, pt desires dose adjusted of ROME and anesth called. : Saw Shelly this AM with her partner present. She's generally doing alright - BF has been frustrating so far bc she has flat and cracked nipples and lactations tips for helping w latch involve two hands - and she has one still in her cast for 5 wks. Otherwise pain OK, minimal lochia. Mood seems status quo - anxious, scattered. 07/29/17 13:15 pt doing well physically from delivery. bld is lessened and mild cramps. urinating fine. reports perineum is managed with ibu and tolerable discomfort with ice packs. nipples are sore and now pumping to stim milk - hasn't slept much at all. is scattered with conversation and hard to focus - not unlike her usual state but worsened by sleep deprivation. Vaginal - Delivery Provider Delivery Physician/CNM: Dolly Cheney - Diagnosis Labor: Induced (with cytotec x 3 doses, then pitocin) Rupture of Membranes Type: Spontaneous Amniotic Fluid Color: Meconium Stained Laceration: 2nd Degree (small - more to left vaginal wall) Repair: 3-0, Vicryl Delivery Events: Nuchal Cord (x1 loose and reduced) - Delivery EBL: 350 Data MELODY: 08/04/17 Gestational Age: 39 week(s) and 2 day(s) Fernandez Delivery Date: 07/28/17 Delivery Time: 00:31 Sex of Infant: Female [place] Weight (gm): 3466 g Score (1 Min): 7 Score (5 Min): 8 Discharge Information - Discharge Information Condition: Good Instruction/Follow Up: See Instruction Sheet, One Week (Pt requests this 1 wk mood check occur by phone, offered in-office visit), Four Weeks (Mood check), Six Weeks (Routine PP, would like IUD)
== END 2017-07-30 15:30 | disposition home or self-care (01) | DRG 775 ==
LOC: OBSVTOIN 21:21 → FLD 21:21 → FOB 07-28 02:30
PROVIDERS: ADMIT Advanced Practice Midwife; ATTEND Obstetrics & Gynecology
PROC: 3E033VJ Introduction of Other Hormone into Peripheral Vein, Percutaneous Approach (ICD-10-PCS; principal; 2017-07-27)
PROC: 10E0XZZ Delivery of Products of Conception, External Approach (ICD-10-PCS; principal; 2017-07-27)
PROC: 0KQM0ZZ Repair Perineum Muscle, Open Approach (ICD-10-PCS; principal; 2017-07-27)
DX: O13.4 Gestational [pregnancy-induced] hypertension without significant proteinuria, complicating childbirth (principal); O77.0 Labor and delivery complicated by meconium in amniotic fluid; O69.81X0 Labor and delivery complicated by cord around neck, without compression, not applicable or unspecified; O70.1 Second degree perineal laceration during delivery; O99.283 Endocrine, nutritional and metabolic diseases complicating pregnancy, third trimester; O99.343 Other mental disorders complicating pregnancy, third trimester; O92.13 Cracked nipple associated with lactation; E03.9 Hypothyroidism, unspecified; F31.9 Bipolar disorder, unspecified; K90.0 Celiac disease; Z23 Encounter for immunization; Z37.0 Single live birth; Z3A.39 39 weeks gestation of pregnancy
CPT/HCPCS: J2370; J2550; J2590; J3010; J3105